=== PATIENT | male | born 1985 | race Caucasian/White ===

== ENCOUNTER 2024-12-12 04:48 | Emergency (ER) | payer MEDICAID, OTHER ==
[~2024-12-12] VITALS: Ht 180.3 cm; Wt 93.0 kg
[2024-12-12 05:10] VITALS: BP 156/102; PULSE 77; RESP 16; TEMP 97.8; O2SAT 99
[2024-12-12] MEDS ORDERED: TETANUS, DIPHTHERIA, PERTUSSIS VAC/PF 0.5ML (>10YR OLD) IM ONE (06:00)
[2024-12-12] MEDS: TETANUS, DIPHTHERIA, PERTUSSIS VAC/PF 0.5ML (>10YR OLD) IM ONE (08:15)
== END 2024-12-12 13:30 | disposition home or self-care (01) ==
LOC: ER 04:48
DX: S02.5XXA Fracture of tooth (traumatic), initial encounter for closed fracture (principal); S01.511A Laceration without foreign body of lip, initial encounter; R51.9 Headache, unspecified; I10 Essential (primary) hypertension; W18.30XA Fall on same level, unspecified, initial encounter; Y93.89 Activity, other specified; Y92.89 Other specified places as the place of occurrence of the external cause; Y99.8 Other external cause status
CPT/HCPCS: 70450; 70486; 90715; 12011; 90471; 99285; Z7610